=== PATIENT | female | born 1990 | race Caucasian/White ===

== ENCOUNTER 2021-11-29 16:14 | Emergency (ER) | payer MEDICAID, SELFPAY ==
[~2021-11-29] VITALS: Ht 167.6 cm; Wt 68.0 kg
[2021-11-29 16:15] VITALS: BP_SYST 131
--- NOTE | 2021-11-29 16:15 | NUR ---
BROUGHT BACK TO OUTSIDE TRIAGE TENT AND TRIAGED, AWAITING ER BED AVAILABILITY
--- NOTE | 2021-11-29 21:12 | NUR ---
pt with at bedside and cooperative and xray done. pt ambulatory and tolerating condition well. car resumed
[2021-11-29] MEDS ORDERED: KETOROLAC TROMETHAMINE 60 MG/2 ML VIAL IM ONE (21:15)
[2021-11-29] MEDS ORDERED: NACL 0.9% 1,000 ML IV ONE (22:30)
--- NOTE | 2021-11-29 22:35 | NUR ---
pt decided to leave AMA ans pt given risk and benfits. ot stable and abulated with present. pt left in her own car. Dr. matar and explained to pt also.
[2021-11-29 22:37] VITALS: BP_SYST 131
== END 2021-11-29 22:35 | disposition left against medical advice (07) ==
LOC: SED 16:14
DX: U07.1 COVID-19 (principal)
CPT/HCPCS: 71045; 87426; 93005; 96372; 99285; J1885; 36415